=== PATIENT | female | born 1965 | race Caucasian/White ===

== ENCOUNTER 2018-04-05 14:19 | Emergency (ER) | payer OTHER ==
[~2018-04-05] VITALS: Ht 172.7 cm; Wt 112.9 kg
[~2018-04-05 14:19] MED LIST: ALBU90OI61 INH; ALPR.5CR; ALPR1; AMIT50; AMIT50 PO; AMIT75; AMIT75 PO; ATEN50; ATOR10; Abilify2 MG; Antivert25 MG PO; BENZ100A PO; CARI350; CRUTCH3 USE; CYCL10; CYCL10 PO; HYDACE5 PO; HYDACE5325 PO; HYDPAM25 PO; IBUP800 PO; LEVFLO500 PO; LISI20 PO; MELO7.5 PO; META800 PO; METCAR750; METO25ER PO; MISO200 PO; NITR.6SL SL; Norco 5-325 Ta1 EACH PO; OLAN10; OMEP20ER PO; OXYACE5T PO; POLY17UD PO; PROM25 PO; Percocet 5-3251 EACH PO; RXTRAM50 PO; TRAM50 PO; VENL150ER PO; Valium5 MG PO; ZOLOFT20 MG/ML PO
[2018-04-05] MEDS ORDERED: LATUDA80 MG PO (14:29)
[2018-04-05 15:02] LABS: BASOPHILS ABSOLUTE AUTO 0.06 K/mm3 (0.00-0.23); BASOPHILS PERCENT AUTO 1 % (0-2); EOSINOPHILS ABSOLUTE AUTO 0.06 K/mm3 (0.00-0.68); EOSINOPHILS PERCENT AUTO 1 % (0-6); Hematocrit 36.6 % (33.0-51.0); Hemoglobin 12.5 g/dL (11.5-16.0); IMMATURE GRAN ABSOLUTE AUTO 0.02 K/mm3 (0.00-0.10); IMMATURE GRAN PERCENT AUTO 0 % (0-1); LYMPHOCYTES ABSOLUTE AUTO 1.96 K/mm3 (0.84-5.20); LYMPHOCYTES PERCENT AUTO 30 % (21-46); MONOCYTES ABSOLUTE AUTO 0.45 K/mm3 (0.16-1.47); MONOCYTES PERCENT AUTO 7 % (4-13); Mean Corpuscular HGB 30.7 pg (26.0-34.0); Mean Corpuscular HGB Conc 34.2 g/dL (31.5-36.5); Mean Corpuscular Volume 90 fL (80-100); Mean Platelet Volume 9.6 fL (9.1-12.4); NEUTROPHILS PERCENT AUTO 62 % (41-73); Platelet Count 217 K/mm3 (150-400); RDW Coefficient Variation 12.3 % (11.7-14.2); RDW Standard Deviation 40.5 fL (35.1-46.3); Red Blood Cell Count 4.07 M/mm3 (3.80-5.20); White Blood Cell Count 6.65 K/mm3 (4.00-11.30)
[2018-04-05 15:20] LABS: Alanine Aminotransfer (ALT/SGP 14 U/L (12-78); Albumin, Blood 3.1 g/dL (3.4-5.0); Albumin/Globulin Ratio 1.1 (0.8-1.8); Alk Phos 81 U/L (50-136); Anion Gap 6 mmol/L (6-16); Aspartate Aminotrans (AST/SGOT 12 U/L (12-37); Bilirubin, Total 0.4 mg/dL (0.1-1.0); Blood Urea Nitrogen 15 mg/dL (8-24); Bun/Creatinine Ratio 15.5 (12.0-20.0); CO2, Blood 25 mmol/L (21-32); Calcium, Blood 8.1 mg/dL (8.5-10.1); Chloride, Blood 112 mmol/L (98-108); Creatinine, Blood 0.97 mg/dL (0.40-1.00); Globulin, Blood 2.8 g/dL (2.2-4.0); Glomerular Filtration Rate >60 (60-); Glucose, Blood 93 mg/dL (70-99); Potassium, Blood 3.7 mmol/L (3.5-5.5); Sodium, Blood 143 mmol/L (136-145); Total Protein, Blood 5.9 g/dL (6.4-8.2); Troponin I <0.015 ng/mL (0.000-0.040)
[2018-04-05] MEDS ORDERED: Norco 7.5-3251 EACH PO (16:30)
[2018-04-05] MEDS ORDERED: Zofran Odt8 MG SL (16:30)
== END 2018-04-05 16:46 | disposition home or self-care (01) ==
LOC: ER 14:19
PROVIDERS: Internal Medicine
DX: R07.89 Other chest pain (principal); I10 Essential (primary) hypertension; K21.9 Gastro-esophageal reflux disease without esophagitis; F41.9 Anxiety disorder, unspecified; F32.9 Major depressive disorder, single episode, unspecified; J45.909 Unspecified asthma, uncomplicated; Z79.899 Other long term (current) drug therapy; Z88.6 Allergy status to analgesic agent; Z88.5 Allergy status to narcotic agent; Z87.891 Personal history of nicotine dependence
CPT/HCPCS: 71046; 80053; 84484; 85025; 93005; 93010; 96374; 99283; J2405

== ENCOUNTER → 2018-05-22 | Outpatient (CLI) | payer OTHER ==
[~2018-05-22] MED LIST changes: +LATUDA80 MG PO; +Norco 7.5-3251 EACH PO; +Zofran Odt8 MG SL
== END | disposition home or self-care (01) ==
LOC: LAB 14:19 → LAB SHORT 14:19
DX: R39.15 Urgency of urination (principal); R32 Unspecified urinary incontinence
CPT/HCPCS: 87086

== ENCOUNTER 2018-11-16 15:29 | Observation (INO) | payer OTHER ==
[~2018-11-16] VITALS: Ht 172.7 cm; Wt 110.7 kg
[2018-11-16] MEDS ORDERED: PRAZ1 PO (15:58)
[2018-11-16] MEDS ORDERED: ZIPR40 PO (15:58)
[2018-11-16] MEDS ORDERED: TEMA15 PO (15:58)
[2018-11-16] MEDS ORDERED: LISI20 PO (15:58)
[2018-11-16] MEDS ORDERED: Oxcarbazepine600 MG PO (15:59)
[2018-11-16] MEDS ORDERED: TOPI50 PO (15:59)
[2018-11-16] MEDS ORDERED: Benztropine Mesy1 MG PO (15:59)
[2018-11-16] MEDS ORDERED: POTA10T PO (16:00)
[2018-11-16] MEDS ORDERED: FURO20 PO (16:00)
[2018-11-16 16:02] LABS: BASOPHILS ABSOLUTE AUTO 0.05 K/mm3 (0.00-0.23); BASOPHILS PERCENT AUTO 1 % (0-2); EOSINOPHILS PERCENT AUTO 1 % (0-6); Hemoglobin 12.6 g/dL (11.5-16.0); IMMATURE GRAN ABSOLUTE AUTO 0.04 K/mm3 (0.00-0.10); IMMATURE GRAN PERCENT AUTO 1 % (0-1); LYMPHOCYTES ABSOLUTE AUTO 1.77 K/mm3 (0.84-5.20); LYMPHOCYTES PERCENT AUTO 22 % (21-46); MONOCYTES ABSOLUTE AUTO 0.56 K/mm3 (0.16-1.47); MONOCYTES PERCENT AUTO 7 % (4-13); Mean Corpuscular HGB 31.5 pg (26.0-34.0); Mean Corpuscular Volume 90 fL (80-100); Mean Platelet Volume 9.2 fL (9.1-12.4); NEUTROPHILS ABSOLUTE AUTO 5.66 K/mm3 (1.96-9.15); NEUTROPHILS PERCENT AUTO 69 % (41-73); Platelet Count 235 K/mm3 (150-400); RDW Coefficient Variation 11.6 % (11.7-14.2); RDW Standard Deviation 38.4 fL (35.1-46.3); White Blood Cell Count 8.18 K/mm3 (4.00-11.30)
[2018-11-16 16:22] LABS: Alanine Aminotransfer (ALT/SGP 26 U/L (12-78); Albumin, Blood 3.7 g/dL (3.4-5.0); Albumin/Globulin Ratio 1.2 (0.8-1.8); Alk Phos 98 U/L (50-136); Anion Gap 11 mmol/L (6-16); Aspartate Aminotrans (AST/SGOT 13 U/L (12-37); Bilirubin, Total 0.2 mg/dL (0.1-1.0); Blood Urea Nitrogen 13 mg/dL (8-24); Bun/Creatinine Ratio 12.7 (12.0-20.0); CO2, Blood 21 mmol/L (21-32); Chloride, Blood 109 mmol/L (98-108); Creatinine, Blood 1.02 mg/dL (0.40-1.00); Glomerular Filtration Rate >60 (60-); Glucose, Blood 93 mg/dL (70-99); Potassium, Blood 3.8 mmol/L (3.5-5.5); Sodium, Blood 141 mmol/L (136-145); Total Protein, Blood 6.7 g/dL (6.4-8.2); Troponin I <0.015 ng/mL (0.000-0.040)
[2018-11-17] MEDS ORDERED: Flonase 0.05% N16 GM (11:28)
[2018-11-17] MEDS ORDERED: ABAT250V (11:28)
== END 2018-11-17 11:20 | disposition home or self-care (01) ==
LOC: ER 15:29 → MEDS 15:30
PROVIDERS: Emergency Medicine
DX: R07.9 Chest pain, unspecified (principal); J44.9 Chronic obstructive pulmonary disease, unspecified; I10 Essential (primary) hypertension; F41.9 Anxiety disorder, unspecified; I47.1 Supraventricular tachycardia; I87.8 Other specified disorders of veins; F32.9 Major depressive disorder, single episode, unspecified; E66.01 Morbid (severe) obesity due to excess calories; R79.1 Abnormal coagulation profile; Z87.891 Personal history of nicotine dependence; Z88.5 Allergy status to narcotic agent; Z88.6 Allergy status to analgesic agent; Z88.8 Allergy status to other drugs, medicaments and biological substances; Z79.899 Other long term (current) drug therapy; Z68.37 Body mass index [BMI] 37.0-37.9, adult
CPT/HCPCS: 36415; 71046; 71260; 80053; 83690; 84484; 85025; 85379; 93005; 93010; 96372; 96374; 99285-25; G0378; J1650; J2405; Q9967

== ENCOUNTER 2019-02-27 13:10 | Inpatient (IN) | payer OTHER ==
[~2019-02-27] VITALS: Ht 172.7 cm; Wt 111.7 kg
[~2019-02-27 13:10] MED LIST changes: +ABAT250V; +Benztropine Mesy1 MG PO; +FURO20 PO; +Flonase 0.05% N16 GM; +Oxcarbazepine600 MG PO; +POTA10T PO; +PRAZ1 PO; +TEMA15 PO; +TOPI50 PO; +ZIPR40 PO
[2019-02-27] MEDS ORDERED: PALI6TA PO (13:41)
[2019-02-27] MEDS ORDERED: ONDA8 PO (13:42)
[2019-02-27] MEDS ORDERED: OXYB5 PO (13:43)
[2019-02-27] MEDS ORDERED: GABA100 PO (13:44)
[2019-02-27] MEDS ORDERED: HYDCHL25 PO (13:44)
[2019-02-27] MEDS ORDERED: PRED20 PO (13:46)
[2019-02-27] MEDS ORDERED: POTCHL10ER PO (13:47)
[2019-02-27] MEDS ORDERED: MONT10T PO (13:49)
[2019-02-27] MEDS ORDERED: FURO20 PO (13:50)
[2019-02-27] MEDS ORDERED: BUTALB-ACETAMI1 EACH PO (13:51)
[2019-02-27] MEDS ORDERED: MECL12.5 PO (13:51)
[2019-02-27 14:22] LABS: BASOPHILS ABSOLUTE AUTO 0.04 K/mm3 (0.00-0.23); BASOPHILS PERCENT AUTO 1 % (0-2); EOSINOPHILS ABSOLUTE AUTO 0.05 K/mm3 (0.00-0.68); EOSINOPHILS PERCENT AUTO 1 % (0-6); IMMATURE GRAN ABSOLUTE AUTO 0.02 K/mm3 (0.00-0.10); IMMATURE GRAN PERCENT AUTO 0 % (0-1); LYMPHOCYTES ABSOLUTE AUTO 1.58 K/mm3 (0.84-5.20); LYMPHOCYTES PERCENT AUTO 19 % (21-46); MONOCYTES PERCENT AUTO 5 % (4-13); Mean Corpuscular HGB 31.6 pg (26.0-34.0); Mean Corpuscular HGB Conc 33.3 g/dL (31.5-36.5); Mean Corpuscular Volume 95 fL (80-100); NEUTROPHILS ABSOLUTE AUTO 6.05 K/mm3 (1.96-9.15); NEUTROPHILS PERCENT AUTO 74 % (41-73); Platelet Count 223 K/mm3 (150-400); RDW Coefficient Variation 11.9 % (11.7-14.2); RDW Standard Deviation 41.9 fL (35.1-46.3); Red Blood Cell Count 4.12 M/mm3 (3.80-5.20); White Blood Cell Count 8.14 K/mm3 (4.00-11.30)
[2019-02-27 14:39] LABS: Alanine Aminotransfer (ALT/SGP 69 U/L (12-78); Albumin, Blood 3.3 g/dL (3.4-5.0); Albumin/Globulin Ratio 1.1 (0.8-1.8); Alk Phos 109 U/L (50-136); Anion Gap 5 mmol/L (6-16); Aspartate Aminotrans (AST/SGOT 33 U/L (12-37); Bilirubin, Total 0.1 mg/dL (0.1-1.0); Blood Urea Nitrogen 37 mg/dL (8-24); Bun/Creatinine Ratio 23.9 (12.0-20.0); CO2, Blood 26 mmol/L (21-32); Calcium, Blood 8.4 mg/dL (8.5-10.1); Chloride, Blood 110 mmol/L (98-108); Creatinine, Blood 1.55 mg/dL (0.40-1.00); Glomerular Filtration Rate 37 (60-); Glucose, Blood 109 mg/dL (70-99); Potassium, Blood 3.8 mmol/L (3.5-5.5); Sodium, Blood 141 mmol/L (136-145); Total Protein, Blood 6.3 g/dL (6.4-8.2); Troponin I <0.015 ng/mL (0.000-0.040)
[2019-02-27 17:01] LABS: Thyroid Stimulating Hormone 0.409 uIU/mL (0.360-4.800)
--- NOTE | 2019-02-27 17:13 | NUR ---
ADMIT NOTE RECEIVED REPORT FROM LUCY VALENZUELA RN IN ED. PT TO ROOM AT 1610, 3 PERSON TRANSFER WITH SLIDER SHEET. PT/SPOUSE ORIENTED TO ROOM AND CALL LIGHT. PT EDUCATED ON FALL RISK AND NEED TO USE CALL LIGHT PRIOR TO GETTING UP DUE TO DIAGNOSIS AND RECENT FALLS AT HOME. BED IN LOW AND CALL LIGHT WITHIN REACH. PT A&OX4, CALM AND COOPERAITVE WITH CARE. PT REPORTING CHEST PRESSURE, 3-4/10, WORSE WHEN LYING BACK, DR MEYER NOTIFIED, NEW ORDERS ENTERED. WILL MEDICATE PER EMAR. PT DENIES SOB. REPROTS PRODUCTIVE COUGH WITH THICK, WHITE SPUTUM. PT RECEIVING IV FLUIDS NS AT 125 ML/HR PER ORDERS. BP AND HR TRENDING UP, HYPOTENSIVE AND BRADYCARDIC PRIOR TO ADMISSION. OTHER VSS. NO OTHER ACUTE CHANGES NOTED DURING SHIFT. WILL COTINUE TO MONITOR UNTIL REPORT GIVEN TO ONCOMING RN.
--- NOTE | 2019-02-28 05:02 | NUR ---
SUMMARY: NO ACUTE CHANGE THIS SHIFT. PT SLEPT WELL. VSS, HAS DENIED DIZZINESS, N/V. PAIN. IV FLUIDS INFUSING. PT AT BEDSIDE. NO ACUTE CONCERNS AT THIS TIME, WILL PASS REPORT TO DAY RN
[2019-02-28 05:31] LABS: BASOPHILS ABSOLUTE AUTO 0.04 K/mm3 (0.00-0.23); BASOPHILS PERCENT AUTO 1 % (0-2); EOSINOPHILS ABSOLUTE AUTO 0.06 K/mm3 (0.00-0.68); EOSINOPHILS PERCENT AUTO 1 % (0-6); Hematocrit 35.9 % (33.0-51.0); Hemoglobin 12.3 g/dL (11.5-16.0); IMMATURE GRAN ABSOLUTE AUTO 0.02 K/mm3 (0.00-0.10); IMMATURE GRAN PERCENT AUTO 0 % (0-1); LYMPHOCYTES PERCENT AUTO 42 % (21-46); MONOCYTES ABSOLUTE AUTO 0.47 K/mm3 (0.16-1.47); MONOCYTES PERCENT AUTO 7 % (4-13); Mean Corpuscular HGB 31.1 pg (26.0-34.0); Mean Corpuscular HGB Conc 34.3 g/dL (31.5-36.5); Mean Platelet Volume 9.8 fL (9.1-12.4); NEUTROPHILS ABSOLUTE AUTO 3.53 K/mm3 (1.96-9.15); NEUTROPHILS PERCENT AUTO 50 % (41-73); Platelet Count 216 K/mm3 (150-400); RDW Coefficient Variation 11.9 % (11.7-14.2); Red Blood Cell Count 3.95 M/mm3 (3.80-5.20); White Blood Cell Count 7.12 K/mm3 (4.00-11.30)
[2019-02-28 05:40] LABS: Mean Corpuscular Volume 91 fL (80-100)
[2019-02-28 05:41] LABS: Alanine Aminotransfer (ALT/SGP 51 U/L (12-78); Albumin, Blood 2.8 g/dL (3.4-5.0); Albumin/Globulin Ratio 1.1 (0.8-1.8); Alk Phos 95 U/L (50-136); Anion Gap 5 mmol/L (6-16); Aspartate Aminotrans (AST/SGOT 22 U/L (12-37); Blood Urea Nitrogen 26 mg/dL (8-24); Bun/Creatinine Ratio 27.2 (12.0-20.0); CHOL/HDL RATIO 3.7; CO2, Blood 23 mmol/L (21-32); Calcium, Blood 8.1 mg/dL (8.5-10.1); Chloride, Blood 116 mmol/L (98-108); Cholesterol 151 mg/dL (50-200); Creatinine, Blood 0.96 mg/dL (0.40-1.00); Globulin, Blood 2.6 g/dL (2.2-4.0); Glomerular Filtration Rate >60 (60-); Glucose, Blood 75 mg/dL (70-99); HDL Cholesterol 41 mg/dL (>39); LDL/HDL RATIO 2.3; Low Density Lipoprotein Chol 93 mg/dL (0-110); Magnesium, Blood 2.1 mg/dL (1.6-2.4); Sodium, Blood 144 mmol/L (136-145); Total Protein, Blood 5.4 g/dL (6.4-8.2); Triglycerides 87 mg/dL (30-160); Very Low Density Lipoprot Chol 17 mg/dL (6-32)
[2019-02-28 06:06] LABS: Bilirubin, Total 0.1 mg/dL (0.1-1.0)
--- NOTE | 2019-02-28 06:39 | NUR ---
PT REPORTED CHEST PRESSURE AT ABOUT 0620 AND THIS RN CALLED INTO ROOM, UPON ASSESSMENT PT REPORTS PAIN AT CHEST, DENIES PAIN IN ARMS, PT IS NOT DIAPHORITIC OR PALE OR CLAMY. PT REPORTS THIS IS THE SAME PAIN SHE FELT YESTERDAY AT ABOUT 1740. PT REPORTS THAT TRAMADOL HELPED YESTERDAY. VITAL SIGNS TAKEN BY DEANGELO MADRID WHICH WERE STABLE AND PATTERN FILER CALLED, NO CHANGE IN PT RATE OR RHYTHM, SINUS CALIN, HR 56. AT ABOUT 0627 PT STATES THAT PAIN IS EASING UP. TRAMADOL GIVEN AT 0625, WILL CTM AND MAKE DAY RN AWARE OF PT SYMPTOMS.
--- NOTE | 2019-02-28 20:08 | NUR ---
SHIFT SUMMARY PT A&OX4. CALM AND COOPERATIVE WITH CARE. PT SBA TO BATHROOM DUE TO DIZZINESS. PT REPORTS EPIGASTIC PAIN AND CONTINUES TO REPORTS CHEST PRESSURE. PT DENIES SOB, >92% ON RA. PT DENIES N/V AND DIZZINESS T/O SHIFT. PT ADVACNED DIET TO CARDIAC, PT APPEARS TO BE TOLERATING WELL. PT RECEIVING NS AT 125 ML/HR. VSS. NO OTHER ACUTE CHANGES NOTED DURING SHIFT. REPORT GIVEN TO ONCOMING RN.
--- NOTE | 2019-03-01 05:39 | NUR ---
SUMMARY: A/OX4, PLEASANT/COOPERATIVE AND SPECIFIES NEEDS. REMAINED AT BEDSIDE T/O NOCTE. PT WAS SBA TO TOILET D/T HX DIZZINESS. SHE WAS MEDICATED W/ TRAMADOL X2 DOSES FOR C/O BAKER AND EPIGASTRIC PAIN W/CHEST PRESSURE. SHE'S DENIED NAUSEA, DIZZINESS AND S/S CARDIAC DISTRESS. NS INFUSES AT 125 ML/HR AND KIDNEY FUNCTION IMPROVING. PT REMAINS S.CALIN AT 50-60'S PER TELEMETRY. VSS AND AFEBRILE. NO ACUTE CHANGES. PT ALSO HAD ANOTHER (+) MRSA WOUND CX ON 02/26/19 AND WILL ENSURE DAY STAFF ALERT MD. WILL MONITOR AND REPORT TO DAY RN.
[2019-03-01 05:48] LABS: Albumin, Blood 2.6 g/dL (3.4-5.0); Bilirubin, Total 0.3 mg/dL (0.1-1.0); Bun/Creatinine Ratio 18.4 (12.0-20.0); Calcium, Blood 8.1 mg/dL (8.5-10.1); Creatinine, Blood 1.03 mg/dL (0.40-1.00); Globulin, Blood 2.7 g/dL (2.2-4.0); Total Protein, Blood 5.3 g/dL (6.4-8.2)
[2019-03-01 06:21] LABS: BASOPHILS ABSOLUTE AUTO 0.05 K/mm3 (0.00-0.23); BASOPHILS PERCENT AUTO 1 % (0-2); EOSINOPHILS PERCENT AUTO 2 % (0-6); Hematocrit 36.8 % (33.0-51.0); Hemoglobin 12.3 g/dL (11.5-16.0); IMMATURE GRAN ABSOLUTE AUTO 0.01 K/mm3 (0.00-0.10); IMMATURE GRAN PERCENT AUTO 0 % (0-1); LYMPHOCYTES ABSOLUTE AUTO 2.81 K/mm3 (0.84-5.20); LYMPHOCYTES PERCENT AUTO 49 % (21-46); MONOCYTES ABSOLUTE AUTO 0.46 K/mm3 (0.16-1.47); MONOCYTES PERCENT AUTO 8 % (4-13); Mean Corpuscular HGB 31.5 pg (26.0-34.0); Mean Corpuscular HGB Conc 33.4 g/dL (31.5-36.5); Mean Platelet Volume 9.7 fL (9.1-12.4); NEUTROPHILS ABSOLUTE AUTO 2.28 K/mm3 (1.96-9.15); NEUTROPHILS PERCENT AUTO 40 % (41-73); Platelet Count 214 K/mm3 (150-400); RDW Coefficient Variation 12.1 % (11.7-14.2); RDW Standard Deviation 42.5 fL (35.1-46.3); Red Blood Cell Count 3.91 M/mm3 (3.80-5.20); White Blood Cell Count 5.71 K/mm3 (4.00-11.30)
[2019-03-01 06:23] LABS: Mean Corpuscular Volume 94 fL (80-100)
--- NOTE | 2019-03-01 09:53 | NUR ---
Echocardiogram completed.
[2019-03-01] MEDS ORDERED: OMEPRAZOLE MAGN20 MG PO (12:30)
--- NOTE | 2019-03-01 14:15 | NUR ---
DISCHARGE SUMMARY PT A&OX4. CALM AND COOPERATIVE WITH CARE. PT RESTING IN BED DURING SHIFT. UP WITH SBA. PT REPORTS HEADACHE, MEDICATED X1 WITH ULTRAM. PT DENIES SOB AND N/V DURING SHIFT. PT BLOOD PRESSURE CONTINUES TO IMPROVE. PT DENIES DIZZINESS AND AND LIGHTHEADED. ORTHO VITALS COMPLETED, DR RUTLEDGE NOTIFIED. IV FLUDIS NS AT 125ML/HR. OTHER VSS. NO OTHER ACUTE CHANGES NOTED DURING SHIFT. PT EDUCATED ON DISCHARGE ORDERS, MEDICATION AND FOLLOW UP APPOINTMENTS. PT SCHEDULED A FOLLOW UP APPOINTMENT WITH DR STAPLES, FOR Friday03/03/19 AT 1440. PT EDUCATED ON TAKING BP AT HOME PRIOR TO TAKING MEDICATIONS. PRESCRIPTIONS FAXED TO [facility] PER PT REQUEST. PT LEFT ON FOOT, REFUSING WHEELCHAIR. PT STABLE UPON DISCHARGE.
== END 2019-03-01 14:10 | disposition home or self-care (01) | DRG 312 ==
LOC: ER 13:10 → MEDS 15:28 → ENPENDDIS 03-01 10:37 → MEDS 03-01 14:10
PROVIDERS: Emergency Medicine; ADMIT Internal Medicine
DX: I95.2 Hypotension due to drugs (principal); N17.9 Acute kidney failure, unspecified; J44.9 Chronic obstructive pulmonary disease, unspecified; R07.89 Other chest pain; E86.9 Volume depletion, unspecified; I10 Essential (primary) hypertension; T50.1X5A Adverse effect of loop [high-ceiling] diuretics, initial encounter; I83.893 Varicose veins of bilateral lower extremities with other complications; F32.9 Major depressive disorder, single episode, unspecified; F41.9 Anxiety disorder, unspecified; F17.210 Nicotine dependence, cigarettes, uncomplicated
CPT/HCPCS: 36415; 71045; 80053; 80061; 82024; 82533; 83690; 83735; 84443; 84484; 85025; 85651; 93005; 93010; 93306; 96360; 99285-25; C9113; J1650; J7030

== ENCOUNTER → 2019-08-16 | Outpatient (CLI) | payer OTHER ==
[~2019-08-16] MED LIST changes: +BUTALB-ACETAMI1 EACH PO; +GABA100 PO; +HYDCHL25 PO; +MECL12.5 PO; +MONT10T PO; +OMEPRAZOLE MAGN20 MG PO; +ONDA8 PO; +OXYB5 PO; +PALI6TA PO; +POTCHL10ER PO; +PRED20 PO
[2019-08-16 17:41] LABS: U Amphetamine Screen Not Detected; U Barbituate Screen DETECTED; U Benzodiazapine Screen DETECTED; U Cannabinoids Screen DETECTED; U Cocaine Screen Not Detected; U Methadone Screen Not Detected; U Methamphetamine Screen Not Detected; U Opiates Screen Not Detected
[2019-08-16 17:42] LABS: U Buprenorphine Screen Not Detected; U Oxycodone Screen Not Detected; U Phencyclidine Screen Not Detected; U Propoxyphene Screen Not Detected
== END | disposition home or self-care (01) ==
LOC: LAB SHORT 16:00 → LAB 16:00
PROVIDERS: Registered Nurse Psychiatric/Mental Health
DX: Z51.81 Encounter for therapeutic drug level monitoring (principal); Z79.899 Other long term (current) drug therapy
CPT/HCPCS: G0480

== ENCOUNTER 2020-04-29 14:12 | Observation (INO) | payer OTHER ==
[~2020-04-29] VITALS: Ht 172.7 cm; Wt 110.1 kg
[2020-04-29 15:00] LABS: BASOPHILS ABSOLUTE AUTO 0.05 K/mm3 (0.00-0.23); BASOPHILS PERCENT AUTO 1 % (0-2); EOSINOPHILS ABSOLUTE AUTO 0.08 K/mm3 (0.00-0.68); EOSINOPHILS PERCENT AUTO 1 % (0-6); Hematocrit 38.7 % (33.0-51.0); Hemoglobin 12.4 g/dL (11.5-16.0); IMMATURE GRAN ABSOLUTE AUTO 0.01 K/mm3 (0.00-0.10); IMMATURE GRAN PERCENT AUTO 0 % (0-1); LYMPHOCYTES ABSOLUTE AUTO 1.98 K/mm3 (0.84-5.20); LYMPHOCYTES PERCENT AUTO 34 % (21-46); MONOCYTES ABSOLUTE AUTO 0.46 K/mm3 (0.16-1.47); MONOCYTES PERCENT AUTO 8 % (4-13); Mean Corpuscular HGB 30.6 pg (26.0-34.0); Mean Corpuscular Volume 96 fL (80-100); Mean Platelet Volume 10.2 fL (9.1-12.4); NEUTROPHILS PERCENT AUTO 56 % (41-73); Platelet Count 218 K/mm3 (150-400); RDW Standard Deviation 45.9 fL (35.1-46.3); Red Blood Cell Count 4.05 M/mm3 (3.80-5.20); White Blood Cell Count 5.88 K/mm3 (4.00-11.30)
[2020-04-29 15:13] LABS: Alanine Aminotransfer (ALT/SGP 19 U/L (12-78); Albumin, Blood 3.3 g/dL (3.4-5.0); Alk Phos 90 U/L (50-136); Anion Gap 7 mmol/L (6-16); Aspartate Aminotrans (AST/SGOT 17 U/L (12-37); Bilirubin, Total 0.3 mg/dL (0.1-1.0); Blood Urea Nitrogen 19 mg/dL (8-24); Bun/Creatinine Ratio 18.3 (12.0-20.0); CO2, Blood 22 mmol/L (21-32); Calcium, Blood 8.4 mg/dL (8.5-10.1); Chloride, Blood 119 mmol/L (98-108); Creatinine, Blood 1.04 mg/dL (0.40-1.00); Globulin, Blood 3.2 g/dL (2.2-4.0); Glomerular Filtration Rate 59 (60-); Glucose, Blood 99 mg/dL (70-99); Potassium, Blood 3.9 mmol/L (3.5-5.5); Sodium, Blood 148 mmol/L (136-145); Total Protein, Blood 6.5 g/dL (6.4-8.2); Troponin I <0.015 ng/mL (0.000-0.040)
[2020-04-29 17:04] LABS: Source, Urine Clean Catch
[2020-04-29 17:07] LABS: Bilirubin, Urine Neg (Neg); Blood, Urine Neg (Neg); Glucose Qualitative, Urine Neg (Neg); Ketones, Urine Neg (Neg); Leukocyte Esterase, Urine Neg (Neg); Nitrite, Urine Neg (Neg); Protein, Urine Neg (Neg); Urobilinogen, Urine NORM (Normal)
[2020-04-29 17:14] LABS: Appearance, Urine Clear (Clear); Color, Urine Yellow (P-Yellow)
[2020-04-29] MEDS ORDERED: PRAZ5 PO (17:42)
[2020-04-29] MEDS ORDERED: Mobic15 MG PO (17:43)
[2020-04-29] MEDS ORDERED: Cetirizine HCl10 MG PO (17:43)
[2020-04-29] MEDS ORDERED: BUPROPION XL150 M1 PO (17:43)
[2020-04-29] MEDS ORDERED: ATOR40TA PO (17:44)
[2020-04-29] MEDS ORDERED: Temazepam30 MG PO (17:44)
[2020-04-29] MEDS ORDERED: PALIPERIDONE ER3 MG PO (17:44)
[2020-04-29] MEDS ORDERED: OXYB5 PO (17:44)
[2020-04-29] MEDS ORDERED: GABA300 PO ×2 (17:46)
[2020-04-29] MEDS ORDERED: NEURONTIN300 MG PO (17:46)
[2020-04-29] MEDS ORDERED: TRAM50 PO (20:26)
[2020-04-29] MEDS ORDERED: BACL20 PO (20:27)
[2020-04-29] MEDS ORDERED: TIZA4 PO (20:29)
[2020-04-29] MEDS ORDERED: OMEP20ER PO (20:30)
[2020-04-29] MEDS ORDERED: NITR.4SL SL (20:31)
[2020-04-29] MEDS ORDERED: PROAIR DIGIHAL90 MCG IH (20:33)
[2020-04-29 20:37] LABS: Prolactin 78.7 ng/mL (2.74-19.64)
[2020-04-29 20:39] LABS: Phosphorus, Blood 3.1 mg/dL (2.5-4.9); Thyroid Stimulating Hormone 0.769 uIU/mL (0.360-4.800)
--- NOTE | 2020-04-30 05:35 | NUR ---
SHIFT SUMMARY PATIENT HAS SLEPT WELL ALL NIGHT. HEADACHE RELIEVED WITH TYLENOL. NO SEIZURE ACTIVITY NOTED. ASSESSMENT IS CHARTED. VSS. WILL CONTINUE TO MONITOR.
--- NOTE | 2020-04-30 07:15 | NUR ---
BEGINNING OF SHIFT Assumed care of pt at 0700. Bedside report received from Walker ROBLES. Pt A&O x 4. Answers questions. Follows commands. Verbalizes needs. On room air. SB per monitor. BP stable. Pt pleasant and cooperative with care. Bed in lowest position. Call light in reach. Pt denies need at this time.
[2020-04-30 09:37] LABS: Albumin, Blood 2.8 g/dL (3.4-5.0); Anion Gap 9 mmol/L (6-16); Blood Urea Nitrogen 15 mg/dL (8-24); Bun/Creatinine Ratio 15.9 (12.0-20.0); CO2, Blood 18 mmol/L (21-32); Calcium, Blood 7.8 mg/dL (8.5-10.1); Chloride, Blood 119 mmol/L (98-108); Creatinine, Blood 0.94 mg/dL (0.40-1.00); Glomerular Filtration Rate >60 (60-); Glucose, Blood 114 mg/dL (70-99); Magnesium, Blood 1.9 mg/dL (1.6-2.4); Phosphorus, Blood 3.1 mg/dL (2.5-4.9); Potassium, Blood 4.2 mmol/L (3.5-5.5); Sodium, Blood 146 mmol/L (136-145)
--- NOTE | 2020-04-30 10:04 | NUR ---
ECHOCARDIOGRAM COMPLETE
[2020-04-30 10:14] LABS: BASOPHILS ABSOLUTE AUTO 0.05 K/mm3 (0.00-0.23); BASOPHILS PERCENT AUTO 1 % (0-2); EOSINOPHILS ABSOLUTE AUTO 0.11 K/mm3 (0.00-0.68); EOSINOPHILS PERCENT AUTO 2 % (0-6); Hematocrit 34.8 % (33.0-51.0); Hemoglobin 11.4 g/dL (11.5-16.0); IMMATURE GRAN ABSOLUTE AUTO 0.01 K/mm3 (0.00-0.10); IMMATURE GRAN PERCENT AUTO 0 % (0-1); LYMPHOCYTES ABSOLUTE AUTO 1.55 K/mm3 (0.84-5.20); LYMPHOCYTES PERCENT AUTO 31 % (21-46); MONOCYTES ABSOLUTE AUTO 0.44 K/mm3 (0.16-1.47); MONOCYTES PERCENT AUTO 9 % (4-13); Mean Corpuscular HGB 31.7 pg (26.0-34.0); Mean Corpuscular HGB Conc 32.8 g/dL (31.5-36.5); Mean Corpuscular Volume 97 fL (80-100); Mean Platelet Volume 9.8 fL (9.1-12.4); NEUTROPHILS ABSOLUTE AUTO 2.82 K/mm3 (1.96-9.15); NEUTROPHILS PERCENT AUTO 57 % (41-73); Platelet Count 171 K/mm3 (150-400); RDW Coefficient Variation 13.1 % (11.7-14.2); RDW Standard Deviation 46.5 fL (35.1-46.3); White Blood Cell Count 4.98 K/mm3 (4.00-11.30)
--- NOTE | 2020-04-30 11:20 | NUR ---
DR RAMON IN TO SEE PT Provider in to see pt. Reviewed pt's EKG and discussed. Provider states suspicion that symptoms preceeding admission are cardiac related. Dr Ramon states potential for cardiology consultation.
--- NOTE | 2020-04-30 11:35 | NUR ---
CONVERSATION WITH PATIENT NOTIFIED THAT PT REQUESTING TO LEAVE AMA, IN TO TALK WITH PT. PT. CALM AND COOPERATIVE, PT REPORTS SHE DID NOT FEEL "SAFE" STAYING IN THE HOSPITAL DUE TO INTERACTION WITH DR. RAMON. REPORTS THAT SHE FELT THOUGH THE DOCTORS WERE NOT COMMUNICATING ABOUT HER CARE AND THAT AFTER TALKING WITH DR. RAMON SHE WAS CONCERNED THAT SHE DID NOT KNOW "WHY THE PATIENT WAS ON SEIZURE MEDICATIONS". THE PATIENT REPORTS THAT SHE WAS VERY HAPPY WITH THE NURSES AND THE ANCILLARY STAFF BUT WAS CONCERNED WITH THE CURRENT INTERACTION WITH DR. RAMON. PT. REPORTS NOTHING WE COULD DO WOULD CHANGE HER MIND. DISCUSSED AMA PAPERWORK/ RISKS/ BENEFITS OF STAYING OR LEAVING. PT AGREES TO SIGN PAPERWORK, PRIMARY RN NOTIFIED.
--- NOTE | 2020-04-30 12:00 | NUR ---
PT WANTS TO LEAVE AMA Pt called this RN into room and asked to be unhooked from monitors because she wants to leave. This RN asked why pt wanted to leave. Pt stated she did not like that Dr Dc asked her about the Keppra prescribed by admitting provider. rail setter, Alva, called into room. Spoke with pt. Pt offered new hospitalist by this RN and by transmitter engineer in charge. Pt refused. Stated her family is already on the way to pick her up. Pt stated several times that she has enjoyed the rest of the bedside staff. Stated ultimately she and her family have historically had negative views towards local doctors and are preferential to seeking medical care in [facility]. Pt getting dressed and awaiting steveniy to pick her up. Patient states she does not want Dr Dc coming into room to talk to her again. Dr Dc notified. Reviewed risks and benefits of leaving AMA. Pt signed AMA paperwork. Pt getting dressed and awaiting ride at this time.
--- NOTE | 2020-04-30 13:45 | NUR ---
UPDATE Pt placed in wheelchair. Pt unsteady on feet. [place] dizzy. Pt wheeled out of unit. This RN asked pt one last time if she is sure she wants to leave AMA. Stated she would be willing to stay if she can get another hospitalist. research staff member, nursing passenger service supervisor, and Dr Dc notified. Dr Dc offered to come speak to pt to resolve the conflict. Pt refused to talk to Dr Dc, stating "she isn't going to do anything to help me". Dr Dc stated that care could not be transferred to another hospitalist until she meets with the patient. Pt updated, continues to refuse to speak to Dr Dc. Ultimately, pt decided to leave against medical advice. Pt provided with phone number for patient advocate. This RN escorted pt by wheelchair to a car driven by her sister, Rebecca. This RN explained to sister, Rebecca, that the pt is still very ill and from a medical standpoint needs immediate medical care. Explained that pt is leaving against medical advice. Encouraged to take to emergency room of wherever pt feels safe receiving care. Discussed that this hospital's emergency room is also an option. Pt's sister states plan to take pt to [place]. Nursing passenger service supervisor, charge nurse, Dr Butler, and critical caregiver assisted living notified of incident.
[2020-05-01 17:08] LABS: U Cannabinoids Screen DETECTED
[2020-05-01 17:09] LABS: U Amphetamine Screen Not Detected; U Barbituate Screen Not Detected; U Benzodiazapine Screen DETECTED; U Buprenorphine Screen Not Detected; U Cocaine Screen Not Detected; U Methadone Screen Not Detected; U Methamphetamine Screen Not Detected; U Opiates Screen Not Detected; U Oxycodone Screen Not Detected; U Phencyclidine Screen Not Detected; U Propoxyphene Screen Not Detected
== END 2020-04-30 12:51 | disposition short-term general hospital (02) ==
LOC: ER 14:12 → ICUW 14:13 → ER 19:31 → ICUW 19:45
PROVIDERS: Nurse Practitioner Acute Care; Physician Assistant; ADMIT Internal Medicine
DX: R55 Syncope and collapse (principal); R07.89 Other chest pain; I10 Essential (primary) hypertension; E78.5 Hyperlipidemia, unspecified; I47.1 Supraventricular tachycardia; G43.909 Migraine, unspecified, not intractable, without status migrainosus; F17.210 Nicotine dependence, cigarettes, uncomplicated; J44.9 Chronic obstructive pulmonary disease, unspecified; F41.9 Anxiety disorder, unspecified; F31.9 Bipolar disorder, unspecified; Z88.6 Allergy status to analgesic agent; Z79.52 Long term (current) use of systemic steroids; Z79.899 Other long term (current) drug therapy
CPT/HCPCS: 36415; 70450; 71046; 80053; 80069; 81003; 83690; 83735; 83880; 84100; 84145; 84146; 84443; 84484; 85025; 85379; 85730; 93005; 93010; 93306; 93880; 96361; 96374; 96375; 99285-25; A9270; A9270-GY; J0780; J1200; J1644; J2405; J3480; J7030

== ENCOUNTER 2020-05-01 17:12 | Emergency (ER) | payer OTHER ==
[~2020-05-01] VITALS: Ht 172.7 cm; Wt 106.6 kg
[~2020-05-01 17:12] MED LIST changes: +ATOR40TA PO; +BACL20 PO; +BUPROPION XL150 M1 PO; +Cetirizine HCl10 MG PO; +GABA300 PO; +Mobic15 MG PO; +NEURONTIN300 MG PO; +NITR.4SL SL; +PALIPERIDONE ER3 MG PO; +PRAZ5 PO; +PROAIR DIGIHAL90 MCG IH; +TIZA4 PO; +Temazepam30 MG PO
[2020-05-01 18:03] LABS: BASOPHILS ABSOLUTE AUTO 0.04 K/mm3 (0.00-0.23); BASOPHILS PERCENT AUTO 1 % (0-2); EOSINOPHILS ABSOLUTE AUTO 0.08 K/mm3 (0.00-0.68); EOSINOPHILS PERCENT AUTO 2 % (0-6); Hematocrit 39.8 % (33.0-51.0); Hemoglobin 13.2 g/dL (11.5-16.0); IMMATURE GRAN ABSOLUTE AUTO 0.01 K/mm3 (0.00-0.10); IMMATURE GRAN PERCENT AUTO 0 % (0-1); LYMPHOCYTES ABSOLUTE AUTO 1.65 K/mm3 (0.84-5.20); LYMPHOCYTES PERCENT AUTO 30 % (21-46); MONOCYTES ABSOLUTE AUTO 0.38 K/mm3 (0.16-1.47); MONOCYTES PERCENT AUTO 7 % (4-13); Mean Corpuscular HGB 31.1 pg (26.0-34.0); Mean Corpuscular HGB Conc 33.2 g/dL (31.5-36.5); Mean Platelet Volume 10.1 fL (9.1-12.4); NEUTROPHILS ABSOLUTE AUTO 3.33 K/mm3 (1.96-9.15); NEUTROPHILS PERCENT AUTO 61 % (41-73); Platelet Count 236 K/mm3 (150-400); RDW Coefficient Variation 12.7 % (11.7-14.2); RDW Standard Deviation 43.8 fL (35.1-46.3); Red Blood Cell Count 4.24 M/mm3 (3.80-5.20); White Blood Cell Count 5.49 K/mm3 (4.00-11.30)
[2020-05-01 18:06] LABS: Mean Corpuscular Volume 94 fL (80-100)
[2020-05-01 18:22] LABS: Alanine Aminotransfer (ALT/SGP 20 U/L (12-78); Albumin, Blood 3.4 g/dL (3.4-5.0); Albumin/Globulin Ratio 1.1 (0.8-1.8); Alk Phos 99 U/L (50-136); Anion Gap 6 mmol/L (6-16); Aspartate Aminotrans (AST/SGOT 12 U/L (12-37); Bilirubin, Total 0.2 mg/dL (0.1-1.0); Blood Urea Nitrogen 14 mg/dL (8-24); Bun/Creatinine Ratio 13.6 (12.0-20.0); CO2, Blood 23 mmol/L (21-32); Calcium, Blood 8.4 mg/dL (8.5-10.1); Chloride, Blood 116 mmol/L (98-108); Creatinine, Blood 1.03 mg/dL (0.40-1.00); Globulin, Blood 3.2 g/dL (2.2-4.0); Glomerular Filtration Rate 59 (60-); Glucose, Blood 109 mg/dL (70-99); Potassium, Blood 3.6 mmol/L (3.5-5.5); Sodium, Blood 145 mmol/L (136-145); Total Protein, Blood 6.6 g/dL (6.4-8.2); Troponin I <0.015 ng/mL (0.000-0.040)
== END 2020-05-01 22:11 | disposition home or self-care (01) ==
LOC: ER 17:12
PROVIDERS: Physician Assistant
DX: R20.2 Paresthesia of skin (principal); I10 Essential (primary) hypertension; E78.5 Hyperlipidemia, unspecified; J44.9 Chronic obstructive pulmonary disease, unspecified; F31.9 Bipolar disorder, unspecified; F41.9 Anxiety disorder, unspecified; F17.210 Nicotine dependence, cigarettes, uncomplicated; Z88.6 Allergy status to analgesic agent; Z88.5 Allergy status to narcotic agent; Z79.899 Other long term (current) drug therapy
CPT/HCPCS: 36415; 80053; 84484; 85025; 93005; 93010; 99285-25

== ENCOUNTER → 2020-09-19 | Outpatient (CLI) | payer OTHER ==
[2020-09-19 19:15] LABS: BASOPHILS ABSOLUTE AUTO 0.05 K/mm3 (0.00-0.23); BASOPHILS PERCENT AUTO 1 % (0-2); EOSINOPHILS ABSOLUTE AUTO 0.16 K/mm3 (0.00-0.68); EOSINOPHILS PERCENT AUTO 2 % (0-6); Hemoglobin 13.2 g/dL (11.5-16.0); IMMATURE GRAN ABSOLUTE AUTO 0.01 K/mm3 (0.00-0.10); IMMATURE GRAN PERCENT AUTO 0 % (0-1); LYMPHOCYTES ABSOLUTE AUTO 2.53 K/mm3 (0.84-5.20); LYMPHOCYTES PERCENT AUTO 36 % (21-46); MONOCYTES ABSOLUTE AUTO 0.46 K/mm3 (0.16-1.47); MONOCYTES PERCENT AUTO 7 % (4-13); Mean Corpuscular HGB 31.1 pg (26.0-34.0); Mean Corpuscular HGB Conc 32.2 g/dL (31.5-36.5); Mean Corpuscular Volume 97 fL (80-100); Mean Platelet Volume 11.2 fL (9.1-12.4); NEUTROPHILS ABSOLUTE AUTO 3.86 K/mm3 (1.96-9.15); NEUTROPHILS PERCENT AUTO 55 % (41-73); Platelet Count 188 K/mm3 (150-400); RDW Coefficient Variation 13.2 % (11.7-14.2); RDW Standard Deviation 47.4 fL (35.1-46.3); Red Blood Cell Count 4.25 M/mm3 (3.80-5.20); White Blood Cell Count 7.07 K/mm3 (4.00-11.30)
[2020-09-19 21:36] LABS: Alanine Aminotransfer (ALT/SGP 22 U/L (12-78); Albumin, Blood 3.4 g/dL (3.4-5.0); Alk Phos 96 U/L (50-136); Aspartate Aminotrans (AST/SGOT 12 U/L (12-37); Bilirubin, Total 0.4 mg/dL (0.1-1.0); Blood Urea Nitrogen 21 mg/dL (8-24); CHOL/HDL RATIO 2.3; Chloride, Blood 112 mmol/L (98-108); Cholesterol 147 mg/dL (50-200); Globulin, Blood 3.3 g/dL (2.2-4.0); Glomerular Filtration Rate >60 (60-); HDL Cholesterol 65 mg/dL (>39); LDL/HDL RATIO 1.1; Low Density Lipoprotein Chol 68 mg/dL (0-110); Potassium, Blood 4.4 mmol/L (3.5-5.5); Sodium, Blood 143 mmol/L (136-145); Total Protein, Blood 6.7 g/dL (6.4-8.2); Triglycerides 68 mg/dL (30-160); Very Low Density Lipoprot Chol 13 mg/dL (6-32)
[2020-09-19 22:05] LABS: Anion Gap 5 mmol/L (6-16); CO2, Blood 26 mmol/L (21-32); Calcium, Blood 9.1 mg/dL (8.5-10.1); Glucose, Blood 82 mg/dL (70-99); Thyroid Stimulating Hormone 0.928 uIU/mL (0.360-4.800)
== END | disposition home or self-care (01) ==
LOC: LAB SHORT 18:09 → LAB 18:09
PROVIDERS: Nurse Practitioner Family
DX: Z13.29 Encounter for screening for other suspected endocrine disorder (principal); F32.9 Major depressive disorder, single episode, unspecified; E78.5 Hyperlipidemia, unspecified; R60.0 Localized edema; Z91.81 History of falling
CPT/HCPCS: 80053; 80061; 82306; 84443; 85025

== ENCOUNTER 2021-02-01 15:58 | Emergency (ER) | payer OTHER ==
[~2021-02-01] VITALS: Ht 172.7 cm; Wt 117.9 kg
[~2021-02-01 15:58] MED LIST changes: +CATAPRES0.3 MG PO; +CLON2 PO; +FURO80; +FUROSEMIDE20 MG PO; +Inderal40 MG PO; +KLOR-CON 1010 MEQ PO; +PALI3TAB PO; +PALIPERIDONE E1.5 MG PO; +POTA10T; +TEMAZEPAM30 M1 PO; +VITAMIN D31000 UNI1 PO
[2021-02-01 16:30] LABS: BASOPHILS ABSOLUTE AUTO 0.07 K/mm3 (0.00-0.23); BASOPHILS PERCENT AUTO 1 % (0-2); EOSINOPHILS ABSOLUTE AUTO 0.12 K/mm3 (0.00-0.68); EOSINOPHILS PERCENT AUTO 2 % (0-6); Hematocrit 40.8 % (33.0-51.0); Hemoglobin 13.4 g/dL (11.5-16.0); IMMATURE GRAN ABSOLUTE AUTO 0.02 K/mm3 (0.00-0.10); IMMATURE GRAN PERCENT AUTO 0 % (0-1); LYMPHOCYTES ABSOLUTE AUTO 2.48 K/mm3 (0.84-5.20); LYMPHOCYTES PERCENT AUTO 33 % (21-46); MONOCYTES ABSOLUTE AUTO 0.71 K/mm3 (0.16-1.47); MONOCYTES PERCENT AUTO 9 % (4-13); Mean Corpuscular HGB 30.8 pg (26.0-34.0); Mean Corpuscular HGB Conc 32.8 g/dL (31.5-36.5); Mean Corpuscular Volume 94 fL (80-100); Mean Platelet Volume 10.7 fL (9.1-12.4); NEUTROPHILS ABSOLUTE AUTO 4.14 K/mm3 (1.96-9.15); NEUTROPHILS PERCENT AUTO 55 % (41-73); Platelet Count 197 K/mm3 (150-400); RDW Coefficient Variation 12.8 % (11.7-14.2); RDW Standard Deviation 44.2 fL (35.1-46.3); Red Blood Cell Count 4.35 M/mm3 (3.80-5.20); White Blood Cell Count 7.54 K/mm3 (4.00-11.30)
[2021-02-01 16:50] LABS: Alanine Aminotransfer (ALT/SGP 24 U/L (12-78); Albumin, Blood 3.4 g/dL (3.4-5.0); Albumin/Globulin Ratio 1.1 (0.8-1.8); Alk Phos 88 U/L (50-136); Anion Gap 3 mmol/L (6-16); Aspartate Aminotrans (AST/SGOT 17 U/L (12-37); Bilirubin, Total 0.3 mg/dL (0.1-1.0); Blood Urea Nitrogen 23 mg/dL (8-24); Bun/Creatinine Ratio 19.8 (12.0-20.0); CO2, Blood 29 mmol/L (21-32); Calcium, Blood 8.7 mg/dL (8.5-10.1); Chloride, Blood 111 mmol/L (98-108); Creatinine, Blood 1.16 mg/dL (0.40-1.00); Glomerular Filtration Rate 51 (60-); Glucose, Blood 92 mg/dL (70-99); Potassium, Blood 4.4 mmol/L (3.5-5.5); Sodium, Blood 143 mmol/L (136-145); Total Protein, Blood 6.4 g/dL (6.4-8.2); Troponin I <0.015 ng/mL (0.000-0.040)
== END 2021-02-01 19:55 | disposition home or self-care (01) ==
LOC: ER 15:58
PROVIDERS: Emergency Medicine
DX: R55 Syncope and collapse (principal); I10 Essential (primary) hypertension; E78.5 Hyperlipidemia, unspecified; J44.9 Chronic obstructive pulmonary disease, unspecified; F17.210 Nicotine dependence, cigarettes, uncomplicated; Z88.6 Allergy status to analgesic agent; Z88.5 Allergy status to narcotic agent; Z79.899 Other long term (current) drug therapy
CPT/HCPCS: 36415; 70450; 71046; 80053; 83880; 84484; 85025; 93005; 93010; 99285-25; J7120

== ENCOUNTER 2021-05-06 19:02 | Emergency (ER) | payer OTHER ==
[~2021-05-06] VITALS: Ht 172.7 cm; Wt 122.5 kg
[2021-05-06] MEDS ORDERED: TRAM50 (19:17)
[2021-05-06] MEDS ORDERED: CETI5 (19:19)
[2021-05-06 20:44] LABS: BASOPHILS ABSOLUTE AUTO 0.05 K/mm3 (0.00-0.23); BASOPHILS PERCENT AUTO 1 % (0-2); EOSINOPHILS ABSOLUTE AUTO 0.14 K/mm3 (0.00-0.68); EOSINOPHILS PERCENT AUTO 3 % (0-6); Hematocrit 38.8 % (33.0-51.0); Hemoglobin 12.9 g/dL (11.5-16.0); IMMATURE GRAN PERCENT AUTO 0 % (0-1); LYMPHOCYTES ABSOLUTE AUTO 2.38 K/mm3 (0.84-5.20); LYMPHOCYTES PERCENT AUTO 46 % (21-46); MONOCYTES ABSOLUTE AUTO 0.33 K/mm3 (0.16-1.47); MONOCYTES PERCENT AUTO 6 % (4-13); Mean Corpuscular HGB 31.2 pg (26.0-34.0); Mean Corpuscular HGB Conc 33.2 g/dL (31.5-36.5); Mean Corpuscular Volume 94 fL (80-100); Mean Platelet Volume 10.8 fL (9.1-12.4); NEUTROPHILS ABSOLUTE AUTO 2.23 K/mm3 (1.96-9.15); NEUTROPHILS PERCENT AUTO 44 % (41-73); Platelet Count 208 K/mm3 (150-400); RDW Coefficient Variation 12.8 % (11.7-14.2); RDW Standard Deviation 44.8 fL (35.1-46.3); Red Blood Cell Count 4.13 M/mm3 (3.80-5.20); White Blood Cell Count 5.13 K/mm3 (4.00-11.30)
[2021-05-06 20:58] LABS: Alanine Aminotransfer (ALT/SGP 26 U/L (12-78); Albumin, Blood 3.5 g/dL (3.4-5.0); Albumin/Globulin Ratio 1.1 (0.8-1.8); Alk Phos 78 U/L (50-136); Anion Gap 5 mmol/L (6-16); Aspartate Aminotrans (AST/SGOT 16 U/L (12-37); Bilirubin, Total 0.4 mg/dL (0.1-1.0); Blood Urea Nitrogen 18 mg/dL (8-24); Bun/Creatinine Ratio 16.2 (12.0-20.0); CO2, Blood 27 mmol/L (21-32); Calcium, Blood 8.4 mg/dL (8.5-10.1); Chloride, Blood 110 mmol/L (98-108); Creatinine, Blood 1.11 mg/dL (0.40-1.00); Globulin, Blood 3.2 g/dL (2.2-4.0); Glomerular Filtration Rate 54 (60-); Glucose, Blood 90 mg/dL (70-99); Magnesium, Blood 1.9 mg/dL (1.6-2.4); Potassium, Blood 3.7 mmol/L (3.5-5.5); Sodium, Blood 142 mmol/L (136-145); Total Protein, Blood 6.7 g/dL (6.4-8.2); Troponin I <0.015 ng/mL (0.000-0.040)
[2021-05-06 22:53] LABS: Source, Urine Clean Catch
[2021-05-06 22:55] LABS: Bilirubin, Urine Neg (Neg); Blood, Urine Neg (Neg); Glucose Qualitative, Urine Neg (Neg); Ketones, Urine Neg (Neg); Leukocyte Esterase, Urine Neg (Neg); Nitrite, Urine Neg (Neg); Protein, Urine Neg (Neg); Urobilinogen, Urine NORM (Normal); pH, Urine 6.5 (5.0-8.0)
[2021-05-06 23:22] LABS: Appearance, Urine Clear (Clear); Color, Urine Yellow (P-Yellow)
== END 2021-05-07 00:29 | disposition home or self-care (01) ==
LOC: ER 19:02
PROVIDERS: Emergency Medicine
DX: N17.9 Acute kidney failure, unspecified (principal); R51.9 Headache, unspecified; R07.9 Chest pain, unspecified; I10 Essential (primary) hypertension; J44.9 Chronic obstructive pulmonary disease, unspecified; E78.5 Hyperlipidemia, unspecified; F17.200 Nicotine dependence, unspecified, uncomplicated; Z88.6 Allergy status to analgesic agent; Z88.5 Allergy status to narcotic agent; Z79.899 Other long term (current) drug therapy
CPT/HCPCS: 36415; 70450; 70496; 70498; 71045; 80053; 81003; 83735; 84484; 85025; 93005; 93010; 96374; 99285-25; A9270; J0780; J7120; Q9967

== ENCOUNTER 2021-06-02 20:29 | Emergency (ER) | payer OTHER ==
[~2021-06-02 20:29] MED LIST changes: +CETI5; +TRAM50
== END 2021-06-02 20:40 | disposition left against medical advice (07) ==
LOC: ER 20:29
DX: Z53.21 Procedure and treatment not carried out due to patient leaving prior to being seen by health care provider (principal)

== ENCOUNTER → 2021-07-09 | Outpatient (CLI) | payer OTHER ==
[~2021-07-09] MED LIST changes: +ALBU2.5V5
[2021-07-09 20:01] LABS: Creatinine Urine 38.8 mg/dL (27.00-270.00)
[2021-07-09 20:15] LABS: Phosphorus, Urine 22.6 mg/dL (20.0-60.0)
[2021-07-25 03:09] LABS: BRUSHITE 1.01 ratio (0.00-3.00); CALCIUM OXALATE 2.13 ratio (0.00-6.00); CALCIUM, URINE 128.8 mg/24 hr (100.0-300.0); CALCIUM, URINE 4.6 mg/dL (Not Estab.); CHLORIDE URINE 134 (110-250); CITRIC ACID (CITRATE) 24 mg/L (Not Estab.); CITRIC ACID(CITRATE) 67 mg/24 hr (320-1240); CREATININE, URINE 1033.2 mg/24 hr (800.0-1800.0); CREATININE, URINE 36.9 mg/dL (Not Estab.); MAGNESIUM, URINE 2.5 mg/dL (Not Estab.); MONOSODIUM URATE 0.72 ratio (0.00-4.00); OSMOLALITY, URINE 227 (300-900); SODIUM, URINE 137 (39-258); SODIUM, URINE 49 mmol/L (Not Estab.); STRUVITE 0.03 ratio (0.00-1.00); URIC ACID 0.11 ratio (0.00-1.20); URINE VOLUME 2800 mL/24 hr (600-1600); URINE VOLUME (PRESERVATIVE) 2800 mL/24 hr (600-1600)
== END | disposition home or self-care (01) ==
LOC: LAB 15:52 → LAB SHORT 15:52
PROVIDERS: Nurse Practitioner Family
DX: N23 Unspecified renal colic (principal)
CPT/HCPCS: 81003; 81050; 82131; 82140; 82340; 82436; 82507; 82570; 83735; 83935; 83945; 84105; 84133; 84300; 84392; 84560

== ENCOUNTER 2021-07-10 10:18 | Emergency (ER) | payer OTHER ==
[~2021-07-10] VITALS: Ht 172.7 cm; Wt 112.9 kg
[~2021-07-10 10:18] MED LIST changes: -ALBU2.5V5
[2021-07-10 10:51] LABS: BASOPHILS ABSOLUTE AUTO 0.04 K/mm3 (0.00-0.23); BASOPHILS PERCENT AUTO 1 % (0-2); EOSINOPHILS ABSOLUTE AUTO 0.05 K/mm3 (0.00-0.68); EOSINOPHILS PERCENT AUTO 1 % (0-6); Hematocrit 41.1 % (33.0-51.0); Hemoglobin 13.8 g/dL (11.5-16.0); IMMATURE GRAN ABSOLUTE AUTO 0.02 K/mm3 (0.00-0.10); IMMATURE GRAN PERCENT AUTO 0 % (0-1); LYMPHOCYTES ABSOLUTE AUTO 1.33 K/mm3 (0.84-5.20); LYMPHOCYTES PERCENT AUTO 19 % (21-46); MONOCYTES ABSOLUTE AUTO 0.26 K/mm3 (0.16-1.47); MONOCYTES PERCENT AUTO 4 % (4-13); Mean Corpuscular HGB 31.1 pg (26.0-34.0); Mean Corpuscular HGB Conc 33.6 g/dL (31.5-36.5); Mean Corpuscular Volume 93 fL (80-100); Mean Platelet Volume 9.8 fL (9.1-12.4); NEUTROPHILS ABSOLUTE AUTO 5.23 K/mm3 (1.96-9.15); NEUTROPHILS PERCENT AUTO 75 % (41-73); Platelet Count 209 K/mm3 (150-400); RDW Coefficient Variation 12.7 % (11.7-14.2); RDW Standard Deviation 42.9 fL (35.1-46.3); Red Blood Cell Count 4.44 M/mm3 (3.80-5.20); White Blood Cell Count 6.93 K/mm3 (4.00-11.30)
[2021-07-10 11:13] LABS: Anion Gap 5 mmol/L (6-16); Blood Urea Nitrogen 15 mg/dL (8-24); Bun/Creatinine Ratio 13.9 (12.0-20.0); CO2, Blood 24 mmol/L (21-32); Calcium, Blood 8.8 mg/dL (8.5-10.1); Chloride, Blood 112 mmol/L (98-108); Creatinine, Blood 1.08 mg/dL (0.40-1.00); Glomerular Filtration Rate 53 (60-); Glucose, Blood 89 mg/dL (70-99); Potassium, Blood 3.9 mmol/L (3.5-5.5); Sodium, Blood 141 mmol/L (136-145); Troponin I <0.015 ng/mL (0.000-0.040)
[2021-07-10] MEDS ORDERED: ALBU2.5V5 (12:15)
== END 2021-07-10 13:19 | disposition home or self-care (01) ==
LOC: ER 10:18
PROVIDERS: Student in an Organized Health Care Education/Training Program
DX: R07.89 Other chest pain (principal); R00.0 Tachycardia, unspecified; R11.0 Nausea; I10 Essential (primary) hypertension; F17.210 Nicotine dependence, cigarettes, uncomplicated; J44.9 Chronic obstructive pulmonary disease, unspecified; E78.5 Hyperlipidemia, unspecified; Z88.6 Allergy status to analgesic agent; Z79.899 Other long term (current) drug therapy; Z88.5 Allergy status to narcotic agent
CPT/HCPCS: 36415; 71046; 80048; 83735; 84484; 85025; 93005; 93010; 96374; 99285-25; A9270; J2405

== ENCOUNTER → 2023-01-01 | Outpatient (CLI) | payer OTHER ==
[~2023-01-01] MED LIST changes: +ALBU2.5V5
[2023-01-01 21:07] LABS: Albumin, Blood 3.7 g/dL (3.4-5.0); Albumin/Globulin Ratio 1.2 (0.8-1.8); Bilirubin, Total 0.4 mg/dL (0.1-1.0); Bun/Creatinine Ratio 14.5 (12.0-20.0); Calcium, Blood 9.4 mg/dL (8.5-10.1); Creatinine, Blood 1.31 mg/dL (0.40-1.00); Total Protein, Blood 6.7 g/dL (6.4-8.2)
== END | disposition home or self-care (01) ==
LOC: LAB SHORT 16:58
PROVIDERS: Family Medicine
DX: E87.6 Hypokalemia (principal)
CPT/HCPCS: 80053

== ENCOUNTER 2023-03-13 21:22 | Observation (INO) | payer OTHER ==
[~2023-03-13] VITALS: Ht 172.7 cm; Wt 131.5 kg
[~2023-03-13 21:22] MED LIST changes: +TOPI25 PO; -TRAM50
[2023-03-13 21:48] LABS: BASOPHILS ABSOLUTE AUTO 0.05 K/mm3 (0.00-0.23); BASOPHILS PERCENT AUTO 1 % (0-2); EOSINOPHILS ABSOLUTE AUTO 0.09 K/mm3 (0.00-0.68); EOSINOPHILS PERCENT AUTO 2 % (0-6); Hematocrit 40.7 % (33.0-51.0); Hemoglobin 13.6 g/dL (11.5-16.0); IMMATURE GRAN ABSOLUTE AUTO 0.01 K/mm3 (0.00-0.10); IMMATURE GRAN PERCENT AUTO 0 % (0-1); LYMPHOCYTES ABSOLUTE AUTO 1.56 K/mm3 (0.84-5.20); LYMPHOCYTES PERCENT AUTO 31 % (21-46); MONOCYTES ABSOLUTE AUTO 0.26 K/mm3 (0.16-1.47); MONOCYTES PERCENT AUTO 5 % (4-13); Mean Corpuscular HGB 29.8 pg (26.0-34.0); Mean Corpuscular HGB Conc 33.4 g/dL (31.5-36.5); Mean Corpuscular Volume 89 fL (80-100); Mean Platelet Volume 9.6 fL (9.1-12.4); NEUTROPHILS ABSOLUTE AUTO 3.11 K/mm3 (1.96-9.15); NEUTROPHILS PERCENT AUTO 61 % (41-73); Platelet Count 242 K/mm3 (150-400); RDW Coefficient Variation 12.7 % (11.7-14.2); RDW Standard Deviation 41.8 fL (35.1-46.3); Red Blood Cell Count 4.56 M/mm3 (3.80-5.20); White Blood Cell Count 5.08 K/mm3 (4.00-11.30)
[2023-03-13 22:10] LABS: Alanine Aminotransfer (ALT/SGP 19 U/L (12-78); Albumin, Blood 3.3 g/dL (3.4-5.0); Albumin/Globulin Ratio 0.9 (0.8-1.8); Alk Phos 117 U/L (50-136); Anion Gap 0 mmol/L (6-16); Aspartate Aminotrans (AST/SGOT 14 U/L (12-37); Bilirubin, Total 0.3 mg/dL (0.1-1.0); Blood Urea Nitrogen 13 mg/dL (8-24); Bun/Creatinine Ratio 12.1 (12.0-20.0); CO2, Blood 29 mmol/L (21-32); Calcium, Blood 9.2 mg/dL (8.5-10.1); Chloride, Blood 111 mmol/L (98-108); Creatinine, Blood 1.07 mg/dL (0.40-1.00); Globulin, Blood 3.6 g/dL (2.2-4.0); Glomerular Filtration Rate 61 (60-); Glucose, Blood 106 mg/dL (70-99); Potassium, Blood 4.3 mmol/L (3.5-5.5); Sodium, Blood 140 mmol/L (136-145); Total Protein, Blood 6.9 g/dL (6.4-8.2)
[2023-03-14 00:35] LABS: Ethanol (Alcohol), Blood, Med <3 mg/dL; Magnesium, Blood 2.1 mg/dL (1.6-2.4); Thyroid Stimulating Hormone 0.611 uIU/mL (0.360-4.800)
[2023-03-14 01:07] LABS: Base Excess Venous 1.6 mmol/L; Bicarbonate Venous 25.5 mmol/L (24.0-30.0); PCO2 Venous 44.4 mmHg (38-42); pH Blood Venous 7.39 (7.34-7.37)
[2023-03-14 01:25] LABS: Influenza A, PCR NEGATIVE (NEGATIVE); Influenza B, PCR NEGATIVE (NEGATIVE); Resp Syncytial Virus, PCR NEGATIVE (NEGATIVE); SARS-Cov-2 (COVID-19) PCR, MMC NEGATIVE (NEGATIVE)
[2023-03-14 01:41] LABS: Source, Urine Clean Catch
[2023-03-14 01:43] LABS: Bilirubin, Urine Neg (Neg); Blood, Urine Neg (Neg); Glucose Qualitative, Urine Neg (Neg); Ketones, Urine Neg (Neg); Leukocyte Esterase, Urine Neg (Neg); Nitrite, Urine Neg (Neg); Protein, Urine Neg (Neg); Specific Gravity, Urine 1.015 (1.003-1.022); Urobilinogen, Urine NORM (Normal)
[2023-03-14 02:08] LABS: U Amphetamine Screen Not Detected; U Barbituate Screen Not Detected; U Benzodiazapine Screen Not Detected; U Buprenorphine Screen Not Detected; U Cannabinoids Screen DETECTED; U Cocaine Screen Not Detected; U Methadone Screen Not Detected; U Methamphetamine Screen Not Detected; U Opiates Screen Not Detected; U Oxycodone Screen Not Detected; U Phencyclidine Screen Not Detected; U Propoxyphene Screen Not Detected
[2023-03-14 02:11] LABS: Appearance, Urine Clear (Clear); Color, Urine Yellow (P-Yellow)
[2023-03-14 05:36] VITALS: BP 156/89
[2023-03-14] MEDS ORDERED: METOPROLOL TART25 MG PO (05:36)
[2023-03-14] MEDS ORDERED: TIOT18 INH (05:38)
[2023-03-14] MEDS ORDERED: REMERON30 M9 PO (05:42)
[2023-03-14] MEDS ORDERED: ZANAFLEX413 PO (05:51)
[2023-03-14 06:22] LABS: BASOPHILS ABSOLUTE AUTO 0.04 K/mm3 (0.00-0.23); BASOPHILS PERCENT AUTO 1 % (0-2); EOSINOPHILS ABSOLUTE AUTO 0.07 K/mm3 (0.00-0.68); EOSINOPHILS PERCENT AUTO 1 % (0-6); Hematocrit 40.6 % (33.0-51.0); Hemoglobin 13.3 g/dL (11.5-16.0); IMMATURE GRAN ABSOLUTE AUTO 0.01 K/mm3 (0.00-0.10); IMMATURE GRAN PERCENT AUTO 0 % (0-1); LYMPHOCYTES PERCENT AUTO 41 % (21-46); MONOCYTES ABSOLUTE AUTO 0.45 K/mm3 (0.16-1.47); MONOCYTES PERCENT AUTO 9 % (4-13); Mean Corpuscular HGB Conc 32.8 g/dL (31.5-36.5); Mean Corpuscular Volume 92 fL (80-100); Mean Platelet Volume 9.6 fL (9.1-12.4); NEUTROPHILS ABSOLUTE AUTO 2.41 K/mm3 (1.96-9.15); NEUTROPHILS PERCENT AUTO 47 % (41-73); Platelet Count 183 K/mm3 (150-400); RDW Coefficient Variation 12.7 % (11.7-14.2); RDW Standard Deviation 42.8 fL (35.1-46.3); Red Blood Cell Count 4.43 M/mm3 (3.80-5.20); White Blood Cell Count 5.08 K/mm3 (4.00-11.30)
--- NOTE | 2023-03-14 06:42 | NUR ---
SHIFT SUMMARY 57 YR F ADMITTED ON 03/14/23 FOR ACUTE ENCEPHALOPATHY. FULL CODE. ASSUMED CARE OF PT AT 0510 THIS A.M. SHE IS ONLY ORIENTED TO SELF AND PLACE BUT DOES NOT KNOW WHY SHE IS HERE. SHE HAD A ROBE ON WHEN SHE ARRIVED TO THIS UNIT AND SEVERAL PERSONAL ITEMS WERE FOUND IN THE POCKETS: A BAF OF MARIJUANA, A CONTAINER OF "DABS", AN RX BOTTLE OF TINAZIDINE, A COUPLE OF LIGHTERS, A FEW DOLLARS (NOT COUNTED) AND SOME PENS. CHARGE NURSE WAS MADE AWARE OF THESE ITEMS AND THEY WERE LOCKED IN THE LOCKBOX IN THE PT'S ROOM. PT HAD ANOTHER PERSONAL BAG OF BELONGINGS BUT THEY HAVE NOT BEEN CHECKED. THIS NURSE HAD VERY LITTLE TIME W/ THIS PT.
[2023-03-14 07:06] LABS: Alanine Aminotransfer (ALT/SGP 20 U/L (12-78); Albumin, Blood 3.1 g/dL (3.4-5.0); Albumin/Globulin Ratio 0.9 (0.8-1.8); Alk Phos 103 U/L (50-136); Anion Gap Unable to Calculate mmol/L (6-16); Aspartate Aminotrans (AST/SGOT 14 U/L (12-37); Bilirubin, Total 0.3 mg/dL (0.1-1.0); Blood Urea Nitrogen 12 mg/dL (8-24); CO2, Blood 30 mmol/L (21-32); Chloride, Blood 111 mmol/L (98-108); Creatinine, Blood 1.09 mg/dL (0.40-1.00); Globulin, Blood 3.3 g/dL (2.2-4.0); Glomerular Filtration Rate 59 (60-); Glucose, Blood 80 mg/dL (70-99); Potassium, Blood 4.2 mmol/L (3.5-5.5); Sodium, Blood 140 mmol/L (136-145); Total Protein, Blood 6.4 g/dL (6.4-8.2)
[2023-03-14 07:38] VITALS: BP 155/88
[2023-03-14 11:51] LABS: Source, Urine Clean Catch
[2023-03-14 11:55] LABS: Bilirubin, Urine Neg (Neg); Blood, Urine 1+ (Neg); Glucose Qualitative, Urine Neg (Neg); Ketones, Urine Neg (Neg); Leukocyte Esterase, Urine 3+ (Neg); Nitrite, Urine Neg (Neg); Protein, Urine Neg (Neg); Urobilinogen, Urine 2+ (Normal)
[2023-03-14 12:02] LABS: Appearance, Urine Hazy (Clear); Color, Urine Yellow (P-Yellow)
[2023-03-14 12:05] LABS: Amorphous Heavy (0-Heavy); Bacteria Many /hpf
[2023-03-14 12:06] LABS: Squamous Epithelial Cells Many /hpf (Few)
[2023-03-14 12:07] LABS: Red Blood Cells, Urine 0-2 /hpf (0-2); Transitional Epithelial Cells Rare /hpf (0-Rare)
[2023-03-14 18:48] VITALS: BP 150/88
--- NOTE | 2023-03-14 19:51 | NUR ---
SHIFT SUMMARY PTN LETHARGIC EARLY SHIFT. HAJSEFOX-ME-NIX OLIVER IN FOR MUCH OF MORNING AND BY AFTERNOON PTN CLEARED AND WAS MORE ALERT. PTN ORIENTED X3. WEAKNESS TO LOWER EXTREMITIES NOTED, 1-ASSIST WITH WALKER TO BATHROOM. PTN WANTED TO LEAVE AMA FIRST OF SHIFT, BUT AGREED TO STAY TO FIND OUT WHY SHE MAY BE HAVING SUCH DROWSINESS. ONLY C/O FOR PAIN WAS IN HER UPPER STOMACH AREA WHERE SHE SAID SOMETIMES SHE HAS INDIGESTION AND EATING SOMETHING HELPS. IV IN L HAND FELL OUT AT SOME POINT, AND ANOTHER IV PLACED IN L FOREARM. NS @ 75 ML/HR, 1000 ML WAS ORDERED. PTN IN CONTACT ISOLATION FOR HEAD LICE. SHE REPORTED TREATING WITH SHAMPOO ON SATURDAY 03/10, NO ACTIVE LICE NOTED, BUT MULTIPLE NITS SEEN. PTN RETREATED THIS SHIFT WITH SOME COMBING. FAMILY AND PTN WILL CONTINUE TO COMB OUT, A SECOND TREATED ORDERED FOR 7 DAYS. PTN IS AWARE OF RE-TREATING IN 7-14 DAYS PER PROTOCOL. CONTINUE TO MONITOR. TO MONITOR.
--- NOTE | 2023-03-14 20:23 | NUR ---
PATIENT REFUSING ALL MEDICATIONS AND INSISTING SHE IS LEAVING. WILL CALL HOSPITALIST TO INFORM AND SEE IF HE WOULD LIKE TO COME IN TO SPEAK TO HER.
[2023-03-14 21:39] VITALS: BP 156/90
--- NOTE | 2023-03-14 22:05 | NUR ---
spoke with Dr Garcia who agreed to come up to speak with patient. Patient daughter in room awaiting MD visit. Patient calming down and stated that if she was having terrible left sided back pain (chronic), and if she could have her regular Ultram and tizantadine, she would agree to stay the night. will notify Dr. Garcia
--- NOTE | 2023-03-15 07:25 | NUR ---
PATIENT STARTED THE SHIFT DETERMINED TO LEAVE AMA. IN SPEAKING WITH DAUGHTER TRISTAN, SHE HAD TOLD HER MOTHER SHE WOULD NOT HELP HER LEAVE AMA BEFORE SHE'S READY. AFTER SPEAKING WITH THE PATIENT, SHE STATED SHE "WASN'T GOING TO GET HER REGULAR MEDICATIONS BECAUSE SHE DIDN'T GET THEM THE PREVIOUS NIGHT. AFTER SHE WAS INFORMED SHE WOULD RECEIVE THEM (INCLUDING HER TRAMADOL, FLEXARIL AND REMERON AND HER DAUGHTER CAME BACK IN TO ENCOURAGE HER. SHE TOOK HER MEDS AND SLEPT ALL NIGHT WITHOUT DIFFICULTY. ORDER TO DC TELE RECEIVED AND COMPLETED
[2023-03-15 08:31] VITALS: BP 132/65
[2023-03-15] MEDS ORDERED: PANT20 PO (11:54)
[2023-03-15] MEDS ORDERED: Acetaminophen650 M1 PO (11:55)
[2023-03-15] MEDS ORDERED: [UNRECOGNIZED DRUG - OTHER] TOP (11:56)
--- NOTE | 2023-03-15 15:02 | NUR ---
Patient doing well today, reports moderate ABD pain. UA culture pending, MD assessed patient at bedside. Plan is to discharge home, new rx for protonix & lice shampoo. MD recommended patient f/u with [facility] to review meds list. MD concerned that drowsiness was d/t medication interactions. Reviewed discharge teaching, patient verbalized understanding. Removed IVs, site WNL. Patient left medical floor at 1445.
== END 2023-03-15 14:50 | disposition home or self-care (01) ==
LOC: ER 21:22 → MEDS 21:23
PROVIDERS: Family Medicine; Internal Medicine; Student in an Organized Health Care Education/Training Program; ADMIT Internal Medicine
DX: G93.40 Encephalopathy, unspecified (principal); N17.9 Acute kidney failure, unspecified; F17.210 Nicotine dependence, cigarettes, uncomplicated; Z20.822 Contact with and (suspected) exposure to COVID-19; E78.5 Hyperlipidemia, unspecified; G40.909 Epilepsy, unspecified, not intractable, without status epilepticus; I47.1 Supraventricular tachycardia; J44.9 Chronic obstructive pulmonary disease, unspecified; F43.10 Post-traumatic stress disorder, unspecified; E55.9 Vitamin D deficiency, unspecified; R53.1 Weakness; R10.9 Unspecified abdominal pain; R11.2 Nausea with vomiting, unspecified; F41.9 Anxiety disorder, unspecified; F20.0 Paranoid schizophrenia; F31.9 Bipolar disorder, unspecified; G43.909 Migraine, unspecified, not intractable, without status migrainosus; I12.9 Hypertensive chronic kidney disease with stage 1 through stage 4 chronic kidney disease, or unspecified chronic kidney disease; N18.9 Chronic kidney disease, unspecified; E66.9 Obesity, unspecified; Z68.41 Body mass index [BMI] 40.0-44.9, adult; Z79.899 Other long term (current) drug therapy
CPT/HCPCS: 0241U; 36415; 51701; 70450; 71045; 80053; 81001; 81003; 82803; 83605; 83690; 83735; 83880; 84443; 84484; 85025; 87086; 93005; 93010; 94640; 94664; 96361; 96372; 96374-59; 96375-59; 99285-25; A9270; C9113; G0378; G0480; J1650; J1953; J2405; J7030

== ENCOUNTER → 2023-03-31 | Outpatient (CLI) | payer OTHER ==
[~2023-03-31] MED LIST changes: +Acetaminophen650 M1 PO; +METOPROLOL TART25 MG PO; +PANT20 PO; +REMERON30 M9 PO; +TIOT18 INH; +ZANAFLEX413 PO; +[UNRECOGNIZED DRUG - OTHER] TOP
[2023-03-31 09:00] LABS: BASOPHILS ABSOLUTE AUTO 0.05 K/mm3 (0.00-0.23); BASOPHILS PERCENT AUTO 1 % (0-2); EOSINOPHILS ABSOLUTE AUTO 0.11 K/mm3 (0.00-0.68); EOSINOPHILS PERCENT AUTO 2 % (0-6); Hematocrit 42.1 % (33.0-51.0); Hemoglobin 13.8 g/dL (11.5-16.0); IMMATURE GRAN ABSOLUTE AUTO 0.01 K/mm3 (0.00-0.10); IMMATURE GRAN PERCENT AUTO 0 % (0-1); LYMPHOCYTES ABSOLUTE AUTO 1.53 K/mm3 (0.84-5.20); LYMPHOCYTES PERCENT AUTO 25 % (21-46); MONOCYTES ABSOLUTE AUTO 0.35 K/mm3 (0.16-1.47); MONOCYTES PERCENT AUTO 6 % (4-13); Mean Corpuscular HGB 29.7 pg (26.0-34.0); Mean Corpuscular HGB Conc 32.8 g/dL (31.5-36.5); Mean Corpuscular Volume 91 fL (80-100); Mean Platelet Volume 10.1 fL (9.1-12.4); NEUTROPHILS ABSOLUTE AUTO 4.11 K/mm3 (1.96-9.15); NEUTROPHILS PERCENT AUTO 67 % (41-73); Platelet Count 189 K/mm3 (150-400); RDW Coefficient Variation 12.5 % (11.7-14.2); RDW Standard Deviation 41.1 fL (35.1-46.3); Red Blood Cell Count 4.64 M/mm3 (3.80-5.20); White Blood Cell Count 6.16 K/mm3 (4.00-11.30)
[2023-03-31 09:23] LABS: Alanine Aminotransfer (ALT/SGP 16 U/L (12-78); Albumin, Blood 3.1 g/dL (3.4-5.0); Albumin/Globulin Ratio 0.9 (0.8-1.8); Alk Phos 113 U/L (50-136); Anion Gap 6 mmol/L (6-16); Aspartate Aminotrans (AST/SGOT 11 U/L (12-37); Bilirubin, Total 0.3 mg/dL (0.1-1.0); Blood Urea Nitrogen 19 mg/dL (8-24); Bun/Creatinine Ratio 16.8 (12.0-20.0); CHOL/HDL RATIO 3.9; CO2, Blood 21 mmol/L (21-32); Calcium, Blood 8.3 mg/dL (8.5-10.1); Chloride, Blood 115 mmol/L (98-108); Cholesterol 166 mg/dL (50-200); Creatinine, Blood 1.13 mg/dL (0.40-1.00); Globulin, Blood 3.3 g/dL (2.2-4.0); Glomerular Filtration Rate 57 (60-); Glucose, Blood 117 mg/dL (70-99); HDL Cholesterol 43 mg/dL (>39); LDL/HDL RATIO 2.3; Low Density Lipoprotein Chol 101 mg/dL (0-110); Potassium, Blood 3.6 mmol/L (3.5-5.5); Sodium, Blood 142 mmol/L (136-145); Total Protein, Blood 6.4 g/dL (6.4-8.2); Triglycerides 112 mg/dL (30-160); Very Low Density Lipoprot Chol 22 mg/dL (6-32)
== END ==
LOC: LAB SHORT 08:02
PROVIDERS: Physician Assistant
DX: Z11.59 Encounter for screening for other viral diseases (principal); E78.5 Hyperlipidemia, unspecified; L65.9 Nonscarring hair loss, unspecified; N18.32 Chronic kidney disease, stage 3b; E55.9 Vitamin D deficiency, unspecified
CPT/HCPCS: 36415; 80053; 80061; 82306; 83036; 84443; 85025; 86803

== ENCOUNTER 2023-12-04 15:29 | Emergency (ER) | payer OTHER ==
[~2023-12-04] VITALS: Ht 172.7 cm; Wt 131.5 kg
[~2023-12-04 15:29] MED LIST changes: +ALBU90OI INH; +Pepcid40 MG PO
[2023-12-04 15:38] VITALS: BP 117/77
[2023-12-04 16:26] LABS: BASOPHILS ABSOLUTE AUTO 0.07 K/mm3 (0.00-0.23); BASOPHILS PERCENT AUTO 1 % (0-2); EOSINOPHILS ABSOLUTE AUTO 0.08 K/mm3 (0.00-0.68); EOSINOPHILS PERCENT AUTO 1 % (0-6); Hematocrit 39.9 % (33.0-51.0); Hemoglobin 13.3 g/dL (11.5-16.0); IMMATURE GRAN ABSOLUTE AUTO 0.04 K/mm3 (0.00-0.10); IMMATURE GRAN PERCENT AUTO 0 % (0-1); LYMPHOCYTES ABSOLUTE AUTO 1.94 K/mm3 (0.84-5.20); LYMPHOCYTES PERCENT AUTO 20 % (21-46); MONOCYTES ABSOLUTE AUTO 0.58 K/mm3 (0.16-1.47); MONOCYTES PERCENT AUTO 6 % (4-13); Mean Corpuscular HGB 30.4 pg (26.0-34.0); Mean Corpuscular HGB Conc 33.3 g/dL (31.5-36.5); Mean Corpuscular Volume 91 fL (80-100); Mean Platelet Volume 9.4 fL (9.1-12.4); NEUTROPHILS ABSOLUTE AUTO 7.07 K/mm3 (1.96-9.15); NEUTROPHILS PERCENT AUTO 72 % (41-73); Platelet Count 278 K/mm3 (150-400); RDW Coefficient Variation 13.1 % (11.7-14.2); Red Blood Cell Count 4.37 M/mm3 (3.80-5.20); White Blood Cell Count 9.78 K/mm3 (4.00-11.30)
[2023-12-04 16:50] LABS: Albumin, Blood 3.4 g/dL (3.4-5.0); Albumin/Globulin Ratio 0.8 (0.8-1.8); Bilirubin, Total 0.4 mg/dL (0.1-1.0); Bun/Creatinine Ratio 13.6 (12.0-20.0); Calcium, Blood 8.9 mg/dL (8.5-10.1); Creatinine, Blood 1.54 mg/dL (0.40-1.00); Globulin, Blood 4.1 g/dL (2.2-4.0); Potassium, Blood 4.4 mmol/L (3.5-5.5); Total Protein, Blood 7.5 g/dL (6.4-8.2)
== END 2023-12-04 18:13 | disposition left against medical advice (07) ==
LOC: ER 15:29
PROVIDERS: Physician Assistant
DX: Z53.21 Procedure and treatment not carried out due to patient leaving prior to being seen by health care provider (principal)
CPT/HCPCS: 80053; 82947; 85025; 93005; 93010; 99282-25

== ENCOUNTER → 2025-03-07 | Outpatient (CLI) | payer OTHER ==
[~2025-03-07] MED LIST changes: +HYDR1TAB94 PO
[2025-03-15 11:02] LABS: HPV HIGH RISK BY TMA Not Detected; HPV SOURCE Not Provided
== END ==
LOC: LAB SHORT 16:15 → LAB 16:15 → LAB SHORT 03-08 17:00
PROVIDERS: Family Medicine
DX: Z12.4 Encounter for screening for malignant neoplasm of cervix (principal)
CPT/HCPCS: 87624; G0123